=== PATIENT | female | born 1990 | race Caucasian/White ===

== ENCOUNTER 2016-10-26 08:13 | Day surgery (SDC) | payer SELFPAY ==
[~2016-10-26] VITALS: Ht 149.9 cm; Wt 54.5 kg
[2016-10-26 09:00] VITALS: BP 125/91
[2016-10-26] MEDS ORDERED: FENTANYL PF 100 MCG/2ML ONE (11:30)
[2016-10-26] MEDS ORDERED: MIDAZOLAM 1 MG/ML, 5ML ONE (11:30)
== END 2016-10-26 13:30 | disposition home or self-care (01) ==
LOC: OUT 08:13
PROVIDERS: ATTEND Internal Medicine Nephrology
DX: I12.9 Hypertensive chronic kidney disease with stage 1 through stage 4 chronic kidney disease, or unspecified chronic kidney disease (principal); N18.2 Chronic kidney disease, stage 2 (mild); Z79.01 Long term (current) use of anticoagulants
CPT/HCPCS: 36415; 50200; 77012; 85610; 88300; J2250; J3010; 99156; 99157

== ENCOUNTER 2016-11-01 11:55 | Emergency (ER) | payer SELFPAY ==
[~2016-11-01] VITALS: Ht 154.9 cm; Wt 55.0 kg
[2016-11-01] MEDS ORDERED: SODIUM CHLORIDE 0.9% 1,000ML IV ONE (12:30)
[2016-11-01] MEDS ORDERED: ONDANSETRON 2MG/ML, 2ML IVPush ONE (12:30)
[2016-11-01] MEDS ORDERED: SODIUM CHLORIDE FLUSH 10ML SYR IVF ONE (12:30)
[2016-11-01] MEDS ORDERED: MORPHINE SULFATE 4 MG/ML, 1ML IVPush PRN (12:30)
[2016-11-01] MEDS ORDERED: MORPHINE SULFATE 4 MG/ML, 1ML ONE (12:35)
[2016-11-01] MEDS ORDERED: ONDANSETRON 2MG/ML, 2ML ONE (12:35)
[2016-11-01 12:51] LABS: HEMOGLOBIN 13.8 g/dL (11.7-16.4)
[2016-11-01 13:24] LABS: PATH.CAST-FLAG NOT PRESENT; SPERM-FLAG NOT PRESENT; SRC-FLAG NOT PRESENT; XTAL-FLAG NOT PRESENT; YLC-FLAG NOT PRESENT
[2016-11-01 14:00] LABS: BLOOD UREA NITROGEN 23 mg/dL (7-18)
[2016-11-01 16:41] VITALS: BP 136/76
== END 2016-11-01 16:43 | disposition home or self-care (01) ==
LOC: ED 13:23
DX: N18.9 Chronic kidney disease, unspecified (principal)
CPT/HCPCS: 36415; 74176; 80048; 81001; 82040; 83605; 84703; 85025; 87086; 96361; 96374; 96375; 99285; J2405; J7030